=== PATIENT | male | born 1995 | race African-American/Black ===

== ENCOUNTER 2017-01-15 13:40 | Emergency (ER) | payer SELFPAY ==
[~2017-01-15] VITALS: Ht 195.6 cm; Wt 68.0 kg
[2017-01-15 13:46] VITALS: BP 120/63
[2017-01-15] MEDS ORDERED: IBUPROFEN 600 MG TABLET PO ONE ×2 (13:59→14:00)
--- NOTE | 2017-01-15 14:18 | NUR ---
PT REFUSING XRAY. PRETTY DANGELO AWARE.
== END 2017-01-15 14:49 | disposition home or self-care (01) ==
LOC: ER 13:44
DX: S69.91XA Unspecified injury of right wrist, hand and finger(s), initial encounter (principal); F17.200 Nicotine dependence, unspecified, uncomplicated; V43.52XA Car driver injured in collision with other type car in traffic accident, initial encounter; Y93.89 Activity, other specified; Y92.89 Other specified places as the place of occurrence of the external cause; Y99.9 Unspecified external cause status
CPT/HCPCS: A4606; Z7610